=== PATIENT | female | born 1935 | race Two or more races ===

== ENCOUNTER 2017-07-11 15:23 | Emergency (ER) | payer OTHER ==
[~2017-07-11] VITALS: Ht 149.9 cm; Wt 67.1 kg
[~2017-07-11 15:23] MED LIST: CARDURA XL4 MG/BOTTL PO; COZAAR; LASIX20 MG PO; PLAVIX75 MG PO; PROTONIX; ZOCOR20 MG PO
[2017-07-11] MEDS ORDERED: ADULT ASPIRIN81 MG (15:40)
[2017-07-11] MEDS ORDERED: NEURONTIN300 MG (15:41)
[2017-07-11] MEDS ORDERED: PEPCID20 MG (15:41)
[2017-07-11] MEDS ORDERED: XANAX0.25 MG (15:42)
[2017-07-11] MEDS ORDERED: COZAAR50 MG (15:42)
[2017-07-11] MEDS ORDERED: BENADRYL25 MG (15:42)
[2017-07-11] MEDS ORDERED: CIPRO500 MG PO (20:41)
[2017-07-11] MEDS ORDERED: FLAGYL500MG PO (20:41)
[2017-07-11] MEDS ORDERED: ZANTAC150 MG PO (20:41)
== END 2017-07-11 20:25 | disposition home or self-care (01) ==
LOC: ER 15:23
DX: K57.32 Diverticulitis of large intestine without perforation or abscess without bleeding (principal); R10.31 Right lower quadrant pain; R10.32 Left lower quadrant pain

== ENCOUNTER 2017-08-22 06:41 | Outpatient (CLI) | payer OTHER ==
[~2017-08-22 06:41] MED LIST changes: +ADULT ASPIRIN81 MG; +BENADRYL25 MG; +CIPRO500 MG PO; +COZAAR50 MG; +FLAGYL500MG PO; +NEURONTIN300 MG; +PEPCID20 MG; +XANAX0.25 MG; +ZANTAC150 MG PO
== END 2017-08-22 07:35 | disposition home or self-care (01) ==
LOC: NUCLEAR 06:41
DX: I20.8 Other forms of angina pectoris (principal); I25.10 Atherosclerotic heart disease of native coronary artery without angina pectoris
CPT/HCPCS: 78452; 93017; A9500; J1250

== ENCOUNTER 2017-09-12 08:00 | Outpatient (CLI) | payer OTHER | END 2017-09-12 08:44 | disposition home or self-care (01) | LOC: NUCLEAR 08:00 | DX: I11.9 Hypertensive heart disease without heart failure (principal); I27.29 Other secondary pulmonary hypertension; I50.32 Chronic diastolic (congestive) heart failure ==

== ENCOUNTER 2018-01-20 11:23 | Emergency (ER) | payer OTHER ==
[~2018-01-20] VITALS: Ht 154.9 cm; Wt 68.0 kg
== END 2018-01-20 20:20 | disposition home or self-care (01) ==
LOC: ER 11:23
DX: K57.30 Diverticulosis of large intestine without perforation or abscess without bleeding (principal); R10.84 Generalized abdominal pain

== ENCOUNTER 2018-04-17 16:56 | Emergency (ER) | payer OTHER ==
[~2018-04-17] VITALS: Ht 162.6 cm; Wt 68.0 kg
== END 2018-04-17 23:33 | disposition home or self-care (01) ==
LOC: ER 16:56 → CPU-OBS 17:35 → ER 17:35
DX: R07.89 Other chest pain (principal)

== ENCOUNTER → 2018-10-29 | Emergency (ER) | payer OTHER ==
[~2018-10-29] VITALS: Ht 154.9 cm; Wt 64.4 kg
[~2018-10-29] MED LIST changes: +NORVASC5 MG
== END | disposition home or self-care (01) ==
LOC: ER 20:52
DX: R42 Dizziness and giddiness (principal); T46.1X5A Adverse effect of calcium-channel blockers, initial encounter

== ENCOUNTER 2019-02-11 15:17 | Emergency (ER) | payer OTHER ==
[~2019-02-11] VITALS: Ht 154.9 cm; Wt 65.8 kg
[2019-02-11] MEDS ORDERED: ORPHENADRINE C100 MG PO (18:16)
[2019-02-11] MEDS ORDERED: CELEBREX100 MG PO (18:16)
== END 2019-02-11 18:28 | disposition home or self-care (01) ==
LOC: ER 15:17
DX: S40.011A Contusion of right shoulder, initial encounter (principal); S49.82XA Other specified injuries of left shoulder and upper arm, initial encounter; S19.89XA Other specified injuries of other specified part of neck, initial encounter; W22.8XXA Striking against or struck by other objects, initial encounter; Y93.89 Activity, other specified; Y92.89 Other specified places as the place of occurrence of the external cause; Y99.8 Other external cause status

== ENCOUNTER 2019-03-15 14:12 | Emergency (ER) | payer OTHER ==
[~2019-03-15] VITALS: Ht 154.9 cm; Wt 65.8 kg
[~2019-03-15 14:12] MED LIST changes: +CELEBREX100 MG PO; +ORPHENADRINE C100 MG PO
[2019-03-15] MEDS ORDERED: XOPENEX0.63 MG/3 IH (21:38)
[2019-03-15] MEDS ORDERED: MEDROLPACK PO (21:38)
[2019-03-15] MEDS ORDERED: PROMETH-CODEIN 65 ML PO (21:38)
[2019-03-15] MEDS ORDERED: ZITHROMAX500 MG PO (21:38)
== END 2019-03-15 22:29 | disposition home or self-care (01) ==
LOC: ER 14:12
DX: J45.998 Other asthma (principal)

== ENCOUNTER 2019-05-17 13:08 | Emergency (ER) | payer OTHER ==
[~2019-05-17] VITALS: Ht 154.9 cm; Wt 65.8 kg
[~2019-05-17 13:08] MED LIST changes: +MEDROLPACK PO; +PROMETH-CODEIN 65 ML PO; +XOPENEX0.63 MG/3 IH; +ZITHROMAX500 MG PO
== END 2019-05-17 18:54 | disposition home or self-care (01) ==
LOC: ER 13:08
DX: M79.604 Pain in right leg (principal)

== ENCOUNTER 2020-09-29 14:31 | Emergency (ER) | payer OTHER ==
[~2020-09-29] VITALS: Ht 154.9 cm; Wt 68.0 kg
[2020-09-29] MEDS ORDERED: BACTRIM 400-801 EACH PO (17:50)
[2020-09-29] MEDS ORDERED: PROBIOTIC1 EAC1 PO (17:50)
== END 2020-09-29 18:10 | disposition home or self-care (01) ==
LOC: ER 14:31
DX: L02.412 Cutaneous abscess of left axilla (principal); B96.89 Other specified bacterial agents as the cause of diseases classified elsewhere

== ENCOUNTER 2021-06-05 14:37 | Emergency (ER) | payer OTHER ==
[~2021-06-05] VITALS: Ht 154.9 cm; Wt 68.9 kg
[~2021-06-05 14:37] MED LIST changes: +BACTRIM 400-801 EACH PO; +PROBIOTIC1 EAC1 PO
== END 2021-06-05 19:17 | disposition home or self-care (01) ==
LOC: ER 14:37
DX: R10.84 Generalized abdominal pain (principal); R42 Dizziness and giddiness; R10.13 Epigastric pain; I10 Essential (primary) hypertension; E11.9 Type 2 diabetes mellitus without complications

== ENCOUNTER 2021-12-11 15:34 | Emergency (ER) | payer OTHER ==
[~2021-12-11] VITALS: Ht 154.9 cm; Wt 68.0 kg
[2021-12-11] MEDS ORDERED: FUROSEMIDE20 MG (15:54)
[2021-12-11] MEDS ORDERED: AMLODIPINE BESYL5 MG (15:54)
== END 2021-12-11 20:53 | disposition home or self-care (01) ==
LOC: ER 15:34
DX: R07.9 Chest pain, unspecified (principal); Z91.013 Allergy to seafood; Z91.041 Radiographic dye allergy status; E78.00 Pure hypercholesterolemia, unspecified; I10 Essential (primary) hypertension; Z20.822 Contact with and (suspected) exposure to COVID-19

== ENCOUNTER 2023-05-26 23:08 | Emergency (ER) | payer OTHER ==
[~2023-05-26] VITALS: Ht 152.4 cm; Wt 68.0 kg
[~2023-05-26 23:08] MED LIST changes: +AMLODIPINE BESYL5 MG; +FUROSEMIDE20 MG
[2023-05-26] MEDS ORDERED: PROTONIX20 MG (23:33)
[2023-05-26] MEDS ORDERED: NORVASC2.5 M1 (23:33)
[2023-05-26] MEDS ORDERED: SIMVASTATIN5 MG (23:34)
== END 2023-05-27 04:03 | disposition home or self-care (01) ==
LOC: ER 23:08
DX: S01.80XA Unspecified open wound of other part of head, initial encounter (principal); W18.30XA Fall on same level, unspecified, initial encounter; Y93.9 Activity, unspecified; Y92.013 Bedroom of single-family (private) house as the place of occurrence of the external cause; Y99.9 Unspecified external cause status
CPT/HCPCS: 12011; 96372; 99283; J1885

== ENCOUNTER 2023-06-09 15:27 | Emergency (ER) | payer OTHER ==
[~2023-06-09] VITALS: Ht 154.9 cm; Wt 66.7 kg
[~2023-06-09 15:27] MED LIST changes: +NORVASC2.5 M1; +PROTONIX20 MG; +SIMVASTATIN5 MG
== END 2023-06-09 17:21 | disposition home or self-care (01) ==
LOC: ER
DX: Z48.02 Encounter for removal of sutures (principal)

== ENCOUNTER 2024-01-27 11:26 | Emergency (ER) | payer OTHER ==
[~2024-01-27] VITALS: Ht 154.9 cm; Wt 68.0 kg
[2024-01-27 13:12] LABS: MEAN CELL VOLUME 92.8 fL (80.00-100.00); MEAN CORPUSCULAR HEMOGLOBIN 30.9 pg (27.00-32.0); MEAN CORPUSCULAR HGB CONC 33.3 g/dl (32.0-36.0); PLATELET COUNT 249 K/uL (150-450); RED BLOOD COUNT 4.21 M/uL (4.00-6.00); RED CELL DISTRIBUTION WIDTH 14.3 % (11.5-14.5)
[2024-01-27 14:14] LABS: CALCIUM 10.3 mg/dL (8.5-10.1); GFR 52.32; POTASSIUM 4.92 mEq/L (3.5-5.1)
== END 2024-01-27 17:06 | disposition home or self-care (01) ==
LOC: ER 11:26
PROVIDERS: General Practice
DX: R53.81 Other malaise (principal); J06.9 Acute upper respiratory infection, unspecified; Z20.822 Contact with and (suspected) exposure to COVID-19; Z91.041 Radiographic dye allergy status

== ENCOUNTER 2024-07-17 11:54 | Emergency (ER) | payer OTHER ==
[~2024-07-17] VITALS: Ht 154.9 cm; Wt 68.0 kg
[2024-07-17] MEDS ORDERED: FARXIGA10 MG PO (12:35)
[2024-07-17] MEDS ORDERED: METRONIDAZOLE/SODIUM CHLORIDE 500 MG/100 ML PIGGYBACK IV ONE ×2 (14:45→15:11)
[2024-07-17] MEDS ORDERED: 0.9 % SODIUM CHLORIDE 250 ML IV SCH (15:00)
[2024-07-17 15:49] LABS: HEMOGLOBIN 13.3 g/dL (12.0-15.00); MEAN CELL VOLUME 91.9 fL (80.00-100.00); MEAN CORPUSCULAR HEMOGLOBIN 30.5 pg (27.00-32.0); MEAN CORPUSCULAR HGB CONC 33.2 g/dl (32.0-36.0); PLATELET COUNT 241 K/uL (150-450); RED BLOOD COUNT 4.35 M/uL (4.00-6.00); RED CELL DISTRIBUTION WIDTH 14.8 % (11.5-14.5)
[2024-07-17 16:25] LABS: ALBUMIN 3.5 gm/dL (3.4-5.0); BILIRUBIN TOTAL 0.59 mg/dL (0.3-1.2); CALCIUM 10.4 mg/dL (8.5-10.1); CREATININE SERUM 1.12 mg/dL (0.55-1.02); GFR 45.8; GLOBULINA 3.1 G/DL (2.4-3.5); POTASSIUM 4.48 mEq/L (3.5-5.1); TOTAL PROTEIN 6.6 gm/dL (6.4-8.2)
[2024-07-17 16:46] LABS: URINE APPEARANCE Clear; URINE BILIRRUBIN Negative (NEGATIVE); URINE BLOOD Negative; URINE COLOR Yellow; URINE KETONE Negative (NEGATIVE); URINE LEUKOCYTE Trace; URINE NITRATE Negative; URINE PROTEIN Negative (NEGATIVE); URINE UROBILINOGEN 0.2 E.U./dl
[2024-07-17 16:50] LABS: URINE BACTERIA 265.4 uL (0.0-1933); URINE EPITHELIAL CELLS 21.5 uL (0.0-38.8); URINE WBC 20.3 uL (0.0-23.2)
[2024-07-17 17:08] LABS: URINE CAST 0.29 uL (0.0-1.40); URINE GLUCOSE >=1000 MG/DL (NEGATIVE); URINE RBC 1.4 uL (0.0-20.8)
[2024-07-17] MEDS ORDERED: BENZONATATE200 M1 PO (17:41)
[2024-07-17] MEDS ORDERED: PROBIOTIC1 EAC2 PO (17:41)
[2024-07-17] MEDS ORDERED: CIPRO500 MG PO (17:41)
[2024-07-17] MEDS ORDERED: METRONIDAZOLE500 MG PO (17:41)
[2024-07-17] MEDS ORDERED: PEPCID AC20 MG PO (17:41)
== END 2024-07-17 18:17 | disposition home or self-care (01) ==
LOC: ER 11:55
PROVIDERS: Emergency Medicine
DX: K57.30 Diverticulosis of large intestine without perforation or abscess without bleeding (principal); K44.9 Diaphragmatic hernia without obstruction or gangrene; I10 Essential (primary) hypertension; Z88.8 Allergy status to other drugs, medicaments and biological substances; Z87.09 Personal history of other diseases of the respiratory system; Z91.041 Radiographic dye allergy status; Z91.013 Allergy to seafood

== ENCOUNTER 2024-07-23 12:08 | Emergency (ER) | payer OTHER ==
[~2024-07-23] VITALS: Ht 154.9 cm; Wt 66.7 kg
[~2024-07-23 12:08] MED LIST changes: +BENZONATATE200 M1 PO; +FARXIGA10 MG PO; +METRONIDAZOLE500 MG PO; +PEPCID AC20 MG PO; +PROBIOTIC1 EAC2 PO
[2024-07-23 14:32] LABS: HEMATOCRIT 38.2 % (36.0-45.00); MEAN CELL VOLUME 91.9 fL (80.00-100.00); MEAN CORPUSCULAR HEMOGLOBIN 31.3 pg (27.00-32.0); MEAN CORPUSCULAR HGB CONC 34.1 g/dl (32.0-36.0); PLATELET COUNT 232 K/uL (150-450); RED BLOOD COUNT 4.15 M/uL (4.00-6.00); RED CELL DISTRIBUTION WIDTH 14.7 % (11.5-14.5)
== END 2024-07-23 15:36 | disposition home or self-care (01) ==
LOC: ER 12:09
PROVIDERS: General Practice
DX: U07.1 COVID-19 (principal); I10 Essential (primary) hypertension; Z88.8 Allergy status to other drugs, medicaments and biological substances; Z91.041 Radiographic dye allergy status; Z91.013 Allergy to seafood

== ENCOUNTER 2025-02-20 12:56 | Emergency (ER) | payer OTHER ==
[~2025-02-20] VITALS: Ht 154.9 cm; Wt 68.0 kg
[2025-02-20] MEDS ORDERED: ENTRESTO 24 MG1 EACH (13:16)
[2025-02-20] MEDS ORDERED: METHYLPREDNISOLONE SOD SUCC 40 MG VIAL IV ONE (13:45)
[2025-02-20] MEDS ORDERED: IPRATROPIUM BROMIDE 0.5 MG/2.5 ML AMPUL.NEB IH ONE ×2 (13:45→14:05)
[2025-02-20] MEDS ORDERED: METHYLPREDNISOLONE SOD SUCC 40 MG VIAL ONE (14:29)
[2025-02-20 17:04] LABS: BASO % 0.6 % (0.1-1.2); EOS # 0.08 (0.04-0.54); EOS % 0.9 % (0.7-7.0); LYMPH # 2.19 (1.18-3.74); LYMPH % 24.3 % (19.3-53.1); MEAN PLATELET VOLUME 10.20 fl (9.4-12.4); MONO # 0.81 (0.24-0.82); MONO % 9.0 % (4.7-12.5); NEUT # 5.87 (1.56-6.13); NEUT % 64.9 % (34.0-71.1); RED CELL DISTRIBUTION WIDTH 13.5 % (11.6-14.4)
[2025-02-20 17:24] LABS: COVID-19 AG NEGATIVE (NEGATIVE)
[2025-02-20 17:30] LABS: BUN CREA RATIO 20.0 (7.0-25.0); CREATININE SERUM 1.29 mg/dL (0.55-1.02); GFR 38.91; GLUCOSE FASTING 191.0 mg/dL (65-100); OSMOLALITY SERUM 287.0 MOSM/KG (275-295)
[2025-02-20] MEDS ORDERED: XOPENEX CO1.25 MG/0. IH (18:16)
[2025-02-20] MEDS ORDERED: ZITHROMAX500 MG PO (18:16)
[2025-02-20] MEDS ORDERED: MEDROLPACK PO (18:16)
[2025-02-20] MEDS ORDERED: BENZONATATE100 MG PO (18:16)
[2025-02-20] MEDS ORDERED: GUAIFENESIN 200 MG/10 ML BLIST.PACK PO ONE ×2 (18:30→19:19)
== END 2025-02-20 20:13 | disposition home or self-care (01) ==
LOC: ER 12:57
PROVIDERS: Student in an Organized Health Care Education/Training Program
DX: J44.1 Chronic obstructive pulmonary disease with (acute) exacerbation (principal); I10 Essential (primary) hypertension; M19.90 Unspecified osteoarthritis, unspecified site; Z91.013 Allergy to seafood; Z91.041 Radiographic dye allergy status; J20.8 Acute bronchitis due to other specified organisms; Z20.822 Contact with and (suspected) exposure to COVID-19

== ENCOUNTER 2025-02-21 11:35 | Inpatient (IN) | payer OTHER ==
[~2025-02-21] VITALS: Ht 154.9 cm; Wt 68.0 kg
[~2025-02-21 11:35] MED LIST changes: +BENZONATATE100 MG PO; +ENTRESTO 24 MG1 EACH; +XOPENEX CO1.25 MG/0. IH
--- NOTE | 2025-02-21 12:04 | NUR ---
PACIENTE EN COMPANIA DE FAMILIAR, LLEGA EN AMBULANCIA. LA MISMA REFIERE DOLOR ABDOMINLA. DOLOR DE PECHO Y DOLOR DE ADRIA DESEDE OLAYINKA. LA MISMA SE ORIENTA SOBRE NORMAS DE AREA. SE MIDEN SIGNOS VITALES Y SE REALIZA EKG. LA MISMA ES ACOSTADA EN COURTNEY #[id number].
[2025-02-21] MEDS ORDERED: IPRATROPIUM BROMIDE 0.5 MG/2.5 ML AMPUL.NEB IH ONE ×2 (15:15→16:40)
[2025-02-21] MEDS ORDERED: LEVALBUTEROL HCL 1.25 MG/3 ML SOLUTION IH ONE ×2 (15:15→16:40)
[2025-02-21] MEDS ORDERED: FAMOTIDINE/PF 20 MG/2 ML VIAL IV ONE (15:15)
[2025-02-21] MEDS ORDERED: ONDANSETRON HCL 2 MG/ML VIAL IV ONE (15:15)
[2025-02-21] MEDS ORDERED: FAMOTIDINE/PF 20 MG/2 ML VIAL ONE (15:34)
[2025-02-21] MEDS ORDERED: ONDANSETRON HCL 2 MG/ML VIAL ONE (15:34)
[2025-02-21 15:43] LABS: BASO % 0.1 % (0.1-1.2); EOS # 0.00 (0.04-0.54); EOS % 0.0 % (0.7-7.0); LYMPH # 0.92 (1.18-3.74); LYMPH % 6.6 % (19.3-53.1); MEAN PLATELET VOLUME 10.50 fl (9.4-12.4); MONO # 0.68 (0.24-0.82); MONO % 4.9 % (4.7-12.5); NEUT # 12.20 (1.56-6.13); NEUT % 88.0 % (34.0-71.1); RED CELL DISTRIBUTION WIDTH 13.7 % (11.6-14.4)
[2025-02-21 15:56] LABS: COVID-19 AG NEGATIVE (NEGATIVE)
--- NOTE | 2025-02-21 16:12 | NUR ---
SE EDUCA PACIENTE SOBRE EL [place] MEDICO Y ESTA REFIERE ENTENDER. LA MISMA CANALIZADA EN MANO IZQUIERDA # 20 DE AMBULANCIA SE ZANE EN S/L Y SE ADMINISTREA MEDICAMENTOS AYAKA ORDEN MEDICA. SE ULZ MUESTRAS DE LABORATORIOS Y SE ENVIAN. SE NOTIFICAN ABGS Y TERAPIAS A MR. GONG. SE REALIZA EKG Y PENDIENTE A PLACA
[2025-02-21 18:08] LABS: ALT/SGPT 19.0 U/L (12-78); AST/SGOT 19.0 U/L (15-37); BILIRUBIN TOTAL 0.34 mg/dL (0.3-1.2); BUN CREA RATIO 23.0 (7.0-25.0); CREATININE SERUM 1.37 mg/dL (0.55-1.02); GFR 36.3; GLOBULINA 2.9 G/DL (2.4-3.5); GLUCOSE FASTING 187.0 mg/dL (65-100); OSMOLALITY SERUM 291.0 MOSM/KG (275-295)
[2025-02-21] MEDS ORDERED: AZITHROMYCIN 500 MG VIAL IV ONE (21:15)
[2025-02-21] MEDS ORDERED: CEFTRIAXONE SODIUM 2,000 MG VIAL IV ONE (21:15)
[2025-02-21] MEDS ORDERED: CEFTRIAXONE SODIUM 2,000 MG in 0.9 % SODIUM CHLORIDE 100 ML IV SCH (21:56)
[2025-02-21] MEDS ORDERED: AZITHROMYCIN 500 MG VIAL IV SCH (21:56)
[2025-02-21] MEDS ORDERED: FAMOTIDINE/PF 20 MG in 0.9 % SODIUM CHLORIDE 8 ML IV PUSH SCH (21:57)
[2025-02-21] MEDS ORDERED: IPRATROPIUM/ALBUTEROL SULFATE 3 ML AMPUL.NEB IH SCH (21:58)
[2025-02-21] MEDS ORDERED: ONDANSETRON HCL 4 MG in 0.9 % SODIUM CHLORIDE 50 ML IV PRN (22:00)
[2025-02-21] MEDS ORDERED: ATORVASTATIN CALCIUM 20 MG TABLET PO SCH (22:08)
[2025-02-21] MEDS ORDERED: BENZONATATE 100 MG CAPSULE PO SCH (22:15)
[2025-02-21] MEDS ORDERED: hydrALAZINE HCL 20 MG VIAL IV PRN (22:15)
[2025-02-21] MEDS ORDERED: IPRATROPIUM/ALBUTEROL SULFATE 3 ML AMPUL.NEB IH ONE (23:58)
[2025-02-22 07:00] VITALS: BP 150/65; O2SAT 100
[2025-02-22] MEDS ORDERED: INSULIN LISPRO 1,000 UNIT/10 ML UNITS SUBCUTANEO PRN (08:45)
[2025-02-22] MEDS ORDERED: DEXTROSE 50 % IN WATER 0.5 G/ML DISP.SYRIN IV PRN (08:45)
[2025-02-22] MEDS ORDERED: ASPIRIN 81 MG TABLET.EC PO SCH (09:00)
[2025-02-22] MEDS ORDERED: SIMVASTATIN 20 MG TABLET PO SCH (09:00)
[2025-02-22] MEDS ORDERED: METHYLPREDNISOLONE SOD SUCC 40 MG VIAL IV SCH (13:00)
[2025-02-22] MEDS ORDERED: BENZONATATE 100 MG CAPSULE PO ONE (18:17)
[2025-02-22] MEDS ORDERED: IPRATROPIUM/ALBUTEROL SULFATE 3 ML AMPUL.NEB IH ONE (20:18)
[2025-02-22] MEDS ORDERED: AMLODIPINE BESYLATE 2.5 MG TABLET PO SCH (21:00)
[2025-02-23] MEDS ORDERED: FAMOTIDINE/PF 20 MG/2 ML VIAL ONE (00:57)
[2025-02-23] MEDS ORDERED: IPRATROPIUM/ALBUTEROL SULFATE 3 ML AMPUL.NEB IH ONE ×2 (01:03→08:01)
[2025-02-23 01:16] VITALS: BP 176/70; O2SAT 97
[2025-02-23] MEDS ORDERED: INSULIN LISPRO 1,000 UNIT/10 ML UNITS SUBCUTANEO ONE (02:05)
[2025-02-23] MEDS ORDERED: METHYLPREDNISOLONE SOD SUCC 40 MG VIAL ONE (05:20)
[2025-02-23] MEDS ORDERED: WATER FOR INJ.,BACTERIOSTATIC 30 ML VIAL IJ ONE (05:21)
[2025-02-23 07:58] VITALS: BP 145/62; O2SAT 98
[2025-02-23 15:00] VITALS: BP 133/56; O2SAT 96
[2025-02-23] MEDS ORDERED: PANTOPRAZOLE SODIUM 40 MG TABLET.DR PO SCH (19:24)
[2025-02-23] MEDS ORDERED: LACTOBACILLUS ACIDOPHILUS 1 CAP CAP PO NR (19:45)
[2025-02-23] MEDS ORDERED: CLOTRIMAZOLE 10 MG TROCHE MM SCH (22:02)
[2025-02-23] MEDS ORDERED: SUCRALFATE 1 G TABLET PO SCH (22:03)
[2025-02-23 23:04] VITALS: BP 148/72; O2SAT 96
[2025-02-23] MEDS ORDERED: BISACODYL 5 MG TABLET.EC PO STA (23:09)
[2025-02-24 00:17] VITALS: BP 114/63; O2SAT 96
[2025-02-24] MEDS ORDERED: AZITHROMYCIN 500 MG VIAL IV ONE (08:10)
[2025-02-24] MEDS ORDERED: FAMOTIDINE/PF 20 MG in 0.9 % SODIUM CHLORIDE 8 ML IV PUSH SCH (09:00)
[2025-02-24] MEDS ORDERED: BISACODYL 5 MG TABLET.EC PO SCH (09:00)
[2025-02-24] MEDS ORDERED: METHYLPREDNISOLONE SOD SUCC 40 MG VIAL IV SCH (09:00)
[2025-02-24] MEDS ORDERED: LACTOBACILLUS ACIDOPHILUS 1 CAP CAP PO SCH (09:00)
[2025-02-24 09:46] VITALS: BP 132/65; O2SAT 97
[2025-02-24 20:02] VITALS: BP 153/82; O2SAT 100
[2025-02-25] MEDS ORDERED: DILTIAZEM HCL 125MG/25ML VIAL IV ONE (03:23)
[2025-02-25] MEDS ORDERED: DILTIAZEM HCL 25 MG/5 ML VIAL IV ONE (03:30)
[2025-02-25] MEDS ORDERED: DILTIAZEM HCL 125 MG in 0.9 % SODIUM CHLORIDE 125 ML IV SCH (03:30)
[2025-02-25 03:37] VITALS: BP 110/60; O2SAT 99
[2025-02-25 05:16] LABS: ALT/SGPT 33.0 U/L (12-78); AST/SGOT 27.0 U/L (15-37); BILIRUBIN TOTAL 0.51 mg/dL (0.3-1.2); BUN CREA RATIO 29.0 (7.0-25.0); CREATININE SERUM 1.72 mg/dL (0.55-1.02); GFR 27.92; GLOBULINA 2.7 G/DL (2.4-3.5); OSMOLALITY SERUM 293.0 MOSM/KG (275-295)
[2025-02-25 05:17] LABS: GLUCOSE FASTING 206.0 mg/dL (65-100)
[2025-02-25] MEDS ORDERED: DILTIAZEM HCL 125 MG in 0.9 % SODIUM CHLORIDE 100 ML IV SCH (08:00)
[2025-02-25] MEDS ORDERED: AZITHROMYCIN 500 MG VIAL IV ONE (08:16)
[2025-02-25] MEDS ORDERED: IPRATROPIUM BROMIDE 0.5 MG/2.5 ML AMPUL.NEB IH SCH (09:00)
[2025-02-25] MEDS ORDERED: VITAMIN B COMPLEX/LYSINE 15 ML BLIST.PACK PO SCH (09:00)
[2025-02-25] MEDS ORDERED: AMINO ACIDS/PROTEIN HYDROLYS 30 ML BLIST.PACK PO SCH (09:00)
[2025-02-25] MEDS ORDERED: MULTIVIT INFUSN,ADULT 4,VIT K 10 ML VIAL IV SCH (09:00)
[2025-02-25] MEDS ORDERED: SODIUM CHLORIDE 0.45 % 1,000 ML IV SCH (09:00)
[2025-02-25] MEDS ORDERED: METHYLPREDNISOLONE SOD SUCC 40 MG VIAL IV SCH (09:00)
[2025-02-25] MEDS ORDERED: ONDANSETRON HCL 4 MG in 0.9 % SODIUM CHLORIDE 50 ML IV SCH (09:00)
[2025-02-25 09:50] VITALS: BP 100/47; O2SAT 97
[2025-02-25] MEDS ORDERED: POTASSIUM CHLORIDE 20MEQ/100ML H2O PB IV NR (10:00)
[2025-02-25] MEDS ORDERED: ONDANSETRON HCL 2 MG/ML VIAL ONE (16:13)
[2025-02-25] MEDS ORDERED: FAMOTIDINE/PF 20 MG/2 ML VIAL ONE (16:13)
[2025-02-25 20:11] VITALS: BP 110/60; O2SAT 96
[2025-02-26 03:16] VITALS: BP 113/63; O2SAT 98
[2025-02-26] MEDS ORDERED: DILTIAZEM HCL 30 MG TABLET PO SCH (09:00)
[2025-02-26] MEDS ORDERED: SIMVASTATIN 10 MG TABLET PO SCH (09:00)
[2025-02-26] MEDS ORDERED: ENOXAPARIN SODIUM 60 MG/0.6 ML SYRINGE SUBCUTANEO SCH (09:00)
[2025-02-26 11:11] VITALS: BP 167/70; O2SAT 98
[2025-02-26] MEDS ORDERED: ONDANSETRON HCL 2 MG/ML VIAL ONE (15:11)
[2025-02-27 03:49] VITALS: BP 110/56; O2SAT 98
[2025-02-27 08:59] LABS: ALT/SGPT 28.0 U/L (12-78); AST/SGOT 20.0 U/L (15-37); BILIRUBIN TOTAL 0.37 mg/dL (0.3-1.2); BUN CREA RATIO 37.0 (7.0-25.0); CREATININE SERUM 1.5 mg/dL (0.55-1.02); GFR 32.7; GLOBULINA 2.4 G/DL (2.4-3.5); GLUCOSE FASTING 173.0 mg/dL (65-100); OSMOLALITY SERUM 292.0 MOSM/KG (275-295)
[2025-02-27 10:18] VITALS: BP 153/68; O2SAT 98
[2025-02-27] MEDS ORDERED: ONDANSETRON HCL 2 MG/ML VIAL ONE (15:30)
[2025-02-27] MEDS ORDERED: FAMOTIDINE/PF 20 MG in 0.9 % SODIUM CHLORIDE 8 ML IV PUSH SCH (17:00)
[2025-02-27] MEDS ORDERED: PATIENTS OWN MEDICATION (MEDICAMENTO EN PISO) PO SCH (17:00)
[2025-02-27 19:11] VITALS: BP 105/62; O2SAT 100
[2025-02-28 02:37] VITALS: BP 104/55; O2SAT 97
[2025-02-28 05:37] LABS: BASO % 0.1 % (0.1-1.2); EOS # 0.00 (0.04-0.54); EOS % 0.0 % (0.7-7.0); LYMPH # 1.01 (1.18-3.74); LYMPH % 7.0 % (19.3-53.1); MEAN PLATELET VOLUME 11.20 fl (9.4-12.4); MONO # 0.81 (0.24-0.82); MONO % 5.6 % (4.7-12.5); NEUT # 12.46 (1.56-6.13); NEUT % 85.9 % (34.0-71.1); RED CELL DISTRIBUTION WIDTH 12.9 % (11.6-14.4)
[2025-02-28 06:40] LABS: BUN CREA RATIO 39.0 (7.0-25.0); CREATININE SERUM 1.42 mg/dL (0.55-1.02); GFR 34.83; OSMOLALITY SERUM 296.0 MOSM/KG (275-295)
[2025-02-28 06:42] LABS: GLUCOSE FASTING 217.0 mg/dL (65-100)
[2025-02-28 09:11] VITALS: BP 107/50; O2SAT 97
[2025-02-28 21:42] VITALS: BP 100/50; O2SAT 100
[2025-03-01 01:00] VITALS: O2SAT 95
[2025-03-01 03:42] VITALS: BP 113/65; O2SAT 98
[2025-03-01 09:56] VITALS: BP 160/77; O2SAT 98
[2025-03-01] MEDS ORDERED: DILTIAZEM HCL30 MG PO (13:52)
[2025-03-01] MEDS ORDERED: CARAFATE1 GM PO (13:52)
[2025-03-01] MEDS ORDERED: POM (MEDICAMENTO EN PO (13:52)
[2025-03-01] MEDS ORDERED: CLOTRIMAZOLE10 MG MM (13:52)
[2025-03-01] MEDS ORDERED: ST. JOSEPH ASPI81 M2 PO (13:52)
== END 2025-03-01 14:48 | disposition home or self-care (01) | DRG 191 ==
LOC: ER 11:35 → SEC-K 22:25 → MEDI 02-23 12:06
PROVIDERS: General Practice; Internal Medicine; Internal Medicine Nephrology; ADMIT Internal Medicine; ATTEND Internal Medicine
PROC: B246ZZZ Ultrasonography of Right and Left Heart (ICD-10-PCS; principal; 2025-02-21)
PROC: 3E0F7GC Introduction of Other Therapeutic Substance into Respiratory Tract, Via Natural or Artificial Opening (ICD-10-PCS; 2025-02-21)
PROC: 4A12X4Z Monitoring of Cardiac Electrical Activity, External Approach (ICD-10-PCS; 2025-02-25)
DX: J44.1 Chronic obstructive pulmonary disease with (acute) exacerbation (principal); N17.8 Other acute kidney failure; R65.10 Systemic inflammatory response syndrome (SIRS) of non-infectious origin without acute organ dysfunction; J06.9 Acute upper respiratory infection, unspecified; I11.0 Hypertensive heart disease with heart failure; I50.9 Heart failure, unspecified; K29.00 Acute gastritis without bleeding; E11.65 Type 2 diabetes mellitus with hyperglycemia; Z79.4 Long term (current) use of insulin; K59.00 Constipation, unspecified; J20.9 Acute bronchitis, unspecified; D72.828 Other elevated white blood cell count; I48.0 Paroxysmal atrial fibrillation